=== PATIENT | female | born 1955 | race Hispanic/Latino ===

== ENCOUNTER 2018-04-24 11:27 | Emergency (ER) | payer BC ==
[2018-04-24] MEDS ORDERED: NACL 0.9% 1000 ML 1,000 ML IV ONE (11:47)
[2018-04-24] MEDS ORDERED: SUBLIMAZE IV ONE (11:47)
[2018-04-24] MEDS ORDERED: ZOFRAN IV ONE (12:03)
[2018-04-24] MEDS ORDERED: KETALAR IV ONE (12:03)
[2018-04-24] MEDS ORDERED: DIPRIVAN 10 MG/ML IV ONE ×2 (12:03→12:51)
--- NOTE | 2018-04-24 12:05 | Emergency Department Report ---
ED General Adult HPI - General Chief complaint: Fall Stated complaint: RT WRIST BROKEN Time Seen by Provider: 04/24/18 11:52 Source: patient, RN notes reviewed, old records reviewed Mode of arrival: Wheelchair Limitations: Physical Limitation - History of Present Illness Initial comments: This is a pleasant 62-year-old female who was not known to this provider previously. Patient has a past history of DJD, fibromyalgia, essential tremors. The patient is up-to-date with tetanus vaccination and is right-hand dominant. She reports she is following up with her outpatient orthopedic surgeon next month, for her chronic right-sided knee pain, and is supposed to have a knee replacement done within the next few weeks. Orthopedic physician: [facility] The patient reports being in her usual state of health when she was walking, and reports that her right knee gave out on her, and she landed on her right cheek and right wrist. She has a mild headache, there is no midline neck pain, there is no extremity weakness or numbness, there is no chest pain or abdominal pain, there is mild right-sided knee pain which is not new, worsening or different, and her primary complaints is a deformed swollen tender right wrist. This has been present since the fall, for slightly less than an hour, pain is sharp, increases with palpation, decreases with rest, and does not radiate anywhere. -: Sudden Location: right, upper extremity Radiation: non-radiation Severity scale (0 -10): 10 Quality: aching Consistency: constant Improves with: rest Worsens with: movement - Related Data Previous Rx's Medication Instructions Recorded Last Taken Type Acetaminophen/Codeine [Tylenol #3] 1 tab PO Q6H PRN #15 tab 05/10/15 Unknown Rx Acetaminophen [Tylenol Arthritis] 650 mg PO Q6HR PRN #30 tablet.er 04/24/18 Unknown Rx Ibuprofen [Motrin] 600 mg PO Q8H PRN #30 tablet 04/24/18 Unknown Rx oxyCODONE [Roxicodone] 5 mg PO Q6HR PRN #15 tablet 04/24/18 Unknown Rx Allergies Allergy/AdvReac Type Severity Reaction Status Date / Time Penicillins AdvReac Swelling Verified 05/10/15 08:55 ED Review of Systems ROS: Stated complaint: RT WRIST BROKEN Other details as noted in HPI Constitutional: denies: fever, malaise Eyes: denies: vision change ENT: denies: epistaxis Respiratory: denies: cough Cardiovascular: denies: chest pain Gastrointestinal: denies: abdominal pain Genitourinary: denies: dysuria Musculoskeletal: arthralgia, myalgia Skin: denies: lesions Neurological: denies: weakness, numbness, paresthesias, confusion Psychiatric: anxiety ED Past Medical Hx - Past Medical History Previous Medical History?: Yes Hx Psychiatric Treatment: Yes Additional medical history: fibromyalgia, OA - Surgical History Additional Surgical History: knee surgery, hysterectomy, bone tumor - Social History Smoking Status: Never Smoker Substance Use Type: None - Medications Home Medications: Home Medications Medication Instructions Recorded Confirmed Last Taken Type Acetaminophen/Codeine [Tylenol #3] 1 tab PO Q6H PRN #15 tab 05/10/15 Unknown Rx Acetaminophen [Tylenol Arthritis] 650 mg PO Q6HR PRN #30 tablet.er 04/24/18 Unknown Rx Ibuprofen [Motrin] 600 mg PO Q8H PRN #30 tablet 04/24/18 Unknown Rx oxyCODONE [Roxicodone] 5 mg PO Q6HR PRN #15 tablet 04/24/18 Unknown Rx ED Physical Exam - General Limitations: Physical Limitation, Other (essential tremor is reviewed and appreciated) General appearance: alert, in no apparent distress - Head Head exam: Present: normocephalic, other (there is a right cheek facial abrasion noted) - Eye Eye exam: Present: normal appearance, PERRL, EOMI. Absent: nystagmus - ENT ENT exam: Present: normal exam, normal orophraynx, mucous membranes moist, normal external ear exam, other (is no jaw tenderness. There is no facial bone tenderness.) - Neck Neck exam: Present: normal inspection, full ROM. Absent: tenderness, meningismus - Respiratory Respiratory exam: Present: normal lung sounds bilaterally. Absent: respiratory distress, wheezes, rales, rhonchi, stridor, chest wall tenderness - Cardiovascular Cardiovascular Exam: Present: regular rate, normal rhythm, normal heart sounds. Absent: bradycardia, tachycardia, irregular rhythm, systolic murmur, diastolic murmur, rubs, gallop - GI/Abdominal GI/Abdominal exam: Present: soft. Absent: distended, tenderness, guarding, rebound, rigid, pulsatile mass - Extremities Exam Extremities exam: Present: tenderness (there is right wrist tenderness), pedal edema, joint swelling (there is right wrist swelling), other (2+ pulses noted in the left upper extremity. 2+ pulses noted in 4 extremities. Compartments soft. No long bony tenderness in the left arm, left leg, right leg. The pelvis is stable. There is no significant instability or laxity to the bilateral knees.). Absent: full ROM, calf tenderness - Back Exam Back exam: Present: normal inspection, full ROM. Absent: tenderness, CVA tenderness (R), paraspinal tenderness, vertebral tenderness - Neurological Exam Neurological exam: Present: alert (patient has essential tremor), other (Extraocular movements intact. Tongue midline. No facial droop. Facial sensation intact to light touch in the V1, V2, V3 distribution bilaterally. 5 and 5 strength in 4 extremities.. Sensation is intact to light touch in 4 extremities.). Absent: motor sensory deficit - Psychiatric Psychiatric exam: Present: anxious - Skin Skin exam: Present: warm, abrasion, ecchymosis ED Course Vital Signs 04/24/18 04/24/18 04/24/18 11:31 12:06 12:50 Temperature 97.6 F Pulse Rate 87 Pulse Rate [ Intra-Procedure ] Pulse Rate [ Post-Procedure] Pulse Rate [Pre 64 -Procedure] Respiratory 18 20 Rate Respiratory Rate [Intra- Procedure] Respiratory Rate [Post- Procedure] Respiratory 11 L Rate [Pre- Procedure] Blood Pressure 83/53 Blood Pressure [Intra- Procedure] Blood Pressure [Post-Procedure ] Blood Pressure 155/68 [Pre-Procedure] O2 Sat by Pulse 98 Oximetry O2 Sat by Pulse Oximetry [ Intra-Procedure ] O2 Sat by Pulse Oximetry [Post -Procedure] O2 Sat by Pulse 99 Oximetry [Pre- Procedure] 04/24/18 04/24/18 04/24/18 12:55 13:00 13:05 Temperature Pulse Rate Pulse Rate [ 64 68 Intra-Procedure ] Pulse Rate [ 73 Post-Procedure] Pulse Rate [Pre -Procedure] Respiratory Rate Respiratory 8 L 7 L Rate [Intra- Procedure] Respiratory 8 L Rate [Post- Procedure] Respiratory Rate [Pre- Procedure] Blood Pressure Blood Pressure 177/76 161/72 [Intra- Procedure] Blood Pressure 173/80 [Post-Procedure ] Blood Pressure [Pre-Procedure] O2 Sat by Pulse Oximetry O2 Sat by Pulse 100 100 Oximetry [ Intra-Procedure ] O2 Sat by Pulse 99 Oximetry [Post -Procedure] O2 Sat by Pulse Oximetry [Pre- Procedure] 04/24/18 04/24/18 04/24/18 13:20 13:35 13:50 Temperature Pulse Rate Pulse Rate [ Intra-Procedure ] Pulse Rate [ 66 63 63 Post-Procedure] Pulse Rate [Pre -Procedure] Respiratory Rate Respiratory Rate [Intra- Procedure] Respiratory 8 L 8 L 11 L Rate [Post- Procedure] Respiratory Rate [Pre- Procedure] Blood Pressure Blood Pressure [Intra- Procedure] Blood Pressure 150/60 139/66 141/59 [Post-Procedure ] Blood Pressure [Pre-Procedure] O2 Sat by Pulse Oximetry O2 Sat by Pulse Oximetry [ Intra-Procedure ] O2 Sat by Pulse 99 99 99 Oximetry [Post -Procedure] O2 Sat by Pulse Oximetry [Pre- Procedure] - Reevaluation(s) Reevaluation #1: 04/24/18 14:55 Differential diagnosis Including but not limited to: Intracranial injury, right wrist fracture Assessment and plan: 62-year-old female status post mechanical trip and fall, medically/clinically sober at this time, [place] Coma Scale of 15, with right facial abrasion, no midline cervical spine pain or tenderness, normal neurologic examination, unremarkable primary, secondary survey, with the exception of the right wrist abrasions, then obviously displaced right distal radius fracture. Pulses intact, has good capillary refill, and thumb opposition, finger intrinsic range of motion appears to be grossly intact to the right upper and left upper extremities. Patient has given informed verbal and written consent for moderate sedation and closed reduction of the right distal radius fracture. She was given 100 mg of ketamine in total, 25 mg of propofol, and through direct manipulation, head near anatomic realignment of her right distal radius fracture. She had a sugar tong splint applied, and had good postprocedural neurovascular integrity demonstrated. She is up-to-date with a tetanus vaccination, and x-rays were transmitted with the patient's permission to our orthopedic surgeon on-call, Dr. Domínguez, who agreed with this plan of care for discharge with outpatient follow-up. Her screening laboratory studies were unremarkable, has not had any episodes of hypotension while in the emergency room, aside from her initial triage, and a noncontrast CT scan of the brain is negative for acute disease. Patient is observed in the emergency room for greater than 3 hours without clinical decompensation, and she is medically suitable for discharge at this point in time 04/24/18 14:56 Reevaluation #2: 04/24/18 15:01 Found to have superficial abrasions on the wrist, cleaned with water, aseptic dressing applied, patient tolerated well. - Moderate Sedation Indications: fracture/dislocation redu ASA Class: II Mallampati Airway Score: 1 Preparation: secured entrance monitor applied, pulse oximeter, capnometry used, supplemental O2 applied, suction/airway equipment at bedside, IV secured Ketamine: IV Ketamine Dose: 25 IV Propofol Dose (mgs): 100 Complications: none Patient Tolerated Procedure: well - Orthopedic Fracture Reduction Fracture #1 Consent Obtained: verbal consent, written consent, emergent situation Time Out Performed: Yes Side: right Fracture Reduction Location: radius Analgesia: moderate sedation Technique: direct manipulation Post Reduction X-rays Demonstrate: acceptable reduction Post-Reduction Neuro Exam: intact Post-Reduction Vascular Exam: intact Splint Applied: Yes Patient Tolerated Procedure: well - Orthopedic Splinting/Casting Injury #1 Side: right Upper Extremity Injury Location: wrist Upper Extremity Immobilizer: sugartong splint ED Medical Decision Making - Lab Data Result diagrams: 04/24/18 12:10 04/24/18 12:10 Vital Signs 04/24/18 04/24/18 04/24/18 11:31 12:06 12:50 Temperature 97.6 F Pulse Rate 87 Pulse Rate [ Intra-Procedure ] Pulse Rate [ Post-Procedure] Pulse Rate [Pre 64 -Procedure] Respiratory 18 20 Rate Respiratory Rate [Intra- Procedure] Respiratory Rate [Post- Procedure] Respiratory 11 L Rate [Pre- Procedure] Blood Pressure 83/53 Blood Pressure [Intra- Procedure] Blood Pressure [Post-Procedure ] Blood Pressure 155/68 [Pre-Procedure] O2 Sat by Pulse 98 Oximetry O2 Sat by Pulse Oximetry [ Intra-Procedure ] O2 Sat by Pulse Oximetry [Post -Procedure] O2 Sat by Pulse 99 Oximetry [Pre- Procedure] 04/24/18 04/24/18 04/24/18 12:55 13:00 13:05 Temperature Pulse Rate Pulse Rate [ 64 68 Intra-Procedure ] Pulse Rate [ 73 Post-Procedure] Pulse Rate [Pre -Procedure] Respiratory Rate Respiratory 8 L 7 L Rate [Intra- Procedure] Respiratory 8 L Rate [Post- Procedure] Respiratory Rate [Pre- Procedure] Blood Pressure Blood Pressure 177/76 161/72 [Intra- Procedure] Blood Pressure 173/80 [Post-Procedure ] Blood Pressure [Pre-Procedure] O2 Sat by Pulse Oximetry O2 Sat by Pulse 100 100 Oximetry [ Intra-Procedure ] O2 Sat by Pulse 99 Oximetry [Post -Procedure] O2 Sat by Pulse Oximetry [Pre- Procedure] 04/24/18 04/24/18 04/24/18 13:20 13:35 13:50 Temperature Pulse Rate Pulse Rate [ Intra-Procedure ] Pulse Rate [ 66 63 63 Post-Procedure] Pulse Rate [Pre -Procedure] Respiratory Rate Respiratory Rate [Intra- Procedure] Respiratory 8 L 8 L 11 L Rate [Post- Procedure] Respiratory Rate [Pre- Procedure] Blood Pressure Blood Pressure [Intra- Procedure] Blood Pressure 150/60 139/66 141/59 [Post-Procedure ] Blood Pressure [Pre-Procedure] O2 Sat by Pulse Oximetry O2 Sat by Pulse Oximetry [ Intra-Procedure ] O2 Sat by Pulse 99 99 99 Oximetry [Post -Procedure] O2 Sat by Pulse Oximetry [Pre- Procedure] Lab Results 04/24/18 04/24/18 04/24/18 Range/Units 12:10 12:10 12:10 WBC 13.1 H (4.5-11.0) K/mm3 RBC 3.87 (3.65-5.03) M/mm3 Hgb 11.8 (10.1-14.3) gm/dl Hct 34.2 (30.3-42.9) % MCV 88 (79-97) fl MCH 31 (28-32) pg MCHC 35 H (30-34) % RDW 16.1 H (13.2-15.2) % Plt Count 328 (140-440) K/mm3 Lymph % (Auto) 5.9 L (13.4-35.0) % Benson % (Auto) 5.3 (0.0-7.3) % Eos % (Auto) 0.7 (0.0-4.3) % Baso % (Auto) 0.2 (0.0-1.8) % Lymph # 0.8 L (1.2-5.4) K/mm3 Benson # 0.7 (0.0-0.8) K/mm3 Eos # 0.1 (0.0-0.4) K/mm3 Baso # 0.0 (0.0-0.1) K/mm3 Seg Neutrophils % 87.9 H (40.0-70.0) % Seg Neutrophils # 11.6 H (1.8-7.7) K/mm3 PT 12.8 (12.2-14.9) Sec. INR 0.91 (0.87-1.13) Sodium 134 L (137-145) mmol/L Potassium 4.0 (3.6-5.0) mmol/L Chloride 95.8 L (98-107) mmol/L Carbon Dioxide 26 (22-30) mmol/L Anion Gap 16 mmol/L BUN 22 H (7-17) mg/dL Creatinine 0.8 (0.7-1.2) mg/dL Estimated GFR > 60 ml/min BUN/Creatinine Ratio 28 % Glucose 152 H (65-100) mg/dL Calcium 8.9 (8.4-10.2) mg/dL Magnesium (1.7-2.3) mg/dL Total Bilirubin 0.30 (0.1-1.2) mg/dL AST 24 (5-40) units/L ALT 16 (7-56) units/L Alkaline Phosphatase 52 (35-129) units/L Total Creatine Kinase (30-135) units/L Total Protein 5.8 L (6.3-8.2) g/dL Albumin 3.8 L (3.9-5) g/dL Albumin/Globulin Ratio 1.9 % TSH (0.270-4.200) mlU/mL Blood Type Antibody Screen 04/24/18 04/24/18 04/24/18 Range/Units 12:10 12:10 12:10 WBC (4.5-11.0) K/mm3 RBC (3.65-5.03) M/mm3 Hgb (10.1-14.3) gm/dl Hct (30.3-42.9) % MCV (79-97) fl MCH (28-32) pg MCHC (30-34) % RDW (13.2-15.2) % Plt Count (140-440) K/mm3 Lymph % (Auto) (13.4-35.0) % Benson % (Auto) (0.0-7.3) % Eos % (Auto) (0.0-4.3) % Baso % (Auto) (0.0-1.8) % Lymph # (1.2-5.4) K/mm3 Benson # (0.0-0.8) K/mm3 Eos # (0.0-0.4) K/mm3 Baso # (0.0-0.1) K/mm3 Seg Neutrophils % (40.0-70.0) % Seg Neutrophils # (1.8-7.7) K/mm3 PT (12.2-14.9) Sec. INR (0.87-1.13) Sodium (137-145) mmol/L Potassium (3.6-5.0) mmol/L Chloride (98-107) mmol/L Carbon Dioxide (22-30) mmol/L Anion Gap mmol/L BUN (7-17) mg/dL Creatinine (0.7-1.2) mg/dL Estimated GFR ml/min BUN/Creatinine Ratio % Glucose (65-100) mg/dL Calcium (8.4-10.2) mg/dL Magnesium 1.80 (1.7-2.3) mg/dL Total Bilirubin (0.1-1.2) mg/dL AST (5-40) units/L ALT (7-56) units/L Alkaline Phosphatase (35-129) units/L Total Creatine Kinase 52 (30-135) units/L Total Protein (6.3-8.2) g/dL Albumin (3.9-5) g/dL Albumin/Globulin Ratio % TSH 3.370 (0.270-4.200) mlU/mL Blood Type A POSITIVE Antibody Screen Negative - EKG Data -: EKG Interpreted by Fl - EKG Data 04/24/18 14:55 EKG limited by motion artifact. Rate bradycardia, 57 beats a minute. Appears to be sinus rhythm. Borderline rightward axis deviation. EKG limited by motion artifact, secondary to patient's underlying essential tremor - Radiology Data Radiology results: report reviewed, image reviewed Noncontrast CT scan of the brain is negative for acute disease. X-ray #1 shows displaced right distal radius fracture. Postreduction x-ray demonstrates near anatomic reduction. Critical care attestation.: If time is entered above; I have spent that time in minutes in the direct care of this critically ill patient, excluding procedure time. ED Disposition Clinical Impression: Fall Fracture of right distal radius Qualifiers: Encounter type: initial encounter Fracture type: closed Fracture morphology: other fracture Qualified Code(s): S52.591A - Other fractures of lower end of right radius, initial encounter for closed fracture Facial abrasion Qualifiers: Encounter type: initial encounter Qualified Code(s): S00.81XA - Abrasion of other part of head, initial encounter Disposition: TO HOME OR SELFCARE Is pt being admited?: No Does the pt Need Aspirin: No Condition: Stable Instructions: Wrist Fracture in Adults (ED) Additional Instructions: Rest, avoid heavy lifting, and avoid strenuous physical activities. Follow up with an orthopedic surgeon within the next 5-7 days. Take the pain medication as needed/directed. Return to the emergency room right away with new pain, w orsened pain, migration of pain, projectile vomiting, change in mental status, confusion, new, worsening or different symptoms. Referrals: REBECCA DOMÍNGUEZ MD [Staff Physician] - 3-5 Days [facility] [Provider Group] - 3-5 Days
--- NOTE | 2018-04-24 12:34 | Cat Scan Report ---
CT HEAD WITHOUT CONTRAST: HISTORY: Fall, head trauma. TECHNIQUE: Sequential 2.5mm CT images. COMPARISON: none. FINDINGS: Cerebral Parenchyma: Within normal limits. Cerebellum: Within normal limits. Brainstem: Within normal limits. Ventricles: Normal. Sella: Normal. Extra-axial spaces: Normal. Basal Cisterns: Normal. Intracranial Hemorrhage: None. Midline Shift: None. Calvarium: Normal. Sinuses: Normal. Mastoid Air Cells: Normal. Visualized Orbits: Normal. IMPRESSION: Cranial CT scan within normal limits.
[2018-04-24 12:35] LABS: Basophils % (Auto) 0.2 % (0.0-1.8); Eosinophils # (Auto) 0.1 K/mm3 (0.0-0.4); Eosinophils % (Auto) 0.7 % (0.0-4.3); Hematocrit 34.2 % (30.3-42.9); Hemoglobin 11.8 gm/dl (10.1-14.3); Lymphocytes # (Auto) 0.8 K/mm3 (1.2-5.4); Lymphocytes % (Auto) 5.9 % (13.4-35.0); Mean Corpuscular HGB Conc 35 % (30-34); Mean Corpuscular Volume 88 fl (79-97); Monocytes # (Auto) 0.7 K/mm3 (0.0-0.8); Monocytes % (Auto) 5.3 % (0.0-7.3); Platelet Count 328 K/mm3 (140-440); Red Blood Count 3.87 M/mm3 (3.65-5.03); Red Cell Distribution Width 16.1 % (13.2-15.2)
--- NOTE | 2018-04-24 12:36 | XRay Report ---
RIGHT WRIST, 2 VIEWS History: Pain after injury, deformity. Findings: Nonstandard views are presented. A mildly comminuted and displaced fracture is identified through the distal radial metaphysis. Posterior displacement at the fracture site is estimated at 2 cm. The distal ulna and carpal bones are grossly intact. There is diffuse soft tissue swelling. Impression: Displaced, slightly comminuted distal right radial fracture.
[2018-04-24 12:45] LABS: INR 0.91 (0.87-1.13)
[2018-04-24 13:00] LABS: Alanine Aminotransferase 16 units/L (7-56); Albumin 3.8 g/dL (3.9-5); BUN/Creatinine Ratio 28; Blood Urea Nitrogen 22 mg/dL (7-17); Calcium 8.9 mg/dL (8.4-10.2); Hemolysis Index 5
[2018-04-24] MEDS ORDERED: SODIUM CHLORIDE FLUSH SYRINGE 10 ML IV NR (13:00)
[2018-04-24] MEDS ORDERED: KETAMINE HCL IV ONE (13:00)
--- NOTE | 2018-04-24 13:56 | XRay Report ---
RIGHT WRIST, 2 VIEWS History: Postreduction film. Findings: The complex fracture involving the distal right radius has been significantly reduced since earlier today at 1200 hrs. Minimal posterior displacement of the distal radius persists. The remainder of the examination is unchanged. A splint has been applied. Impression: Near-anatomic alignment of distal radial fracture site.
[2018-04-24] MEDS ORDERED: TORADOL IV ONE (14:01)
[2018-04-24] MEDS ORDERED: REGLAN IV ONE (14:16)
[2018-04-24 16:31] VITALS: BP 140/66
== END 2018-04-24 16:45 | disposition home or self-care (01) ==
LOC: ED 11:27
DX: S52.591A Other fractures of lower end of right radius, initial encounter for closed fracture (principal); S00.81XA Abrasion of other part of head, initial encounter; M19.90 Unspecified osteoarthritis, unspecified site; Z88.0 Allergy status to penicillin; W18.30XA Fall on same level, unspecified, initial encounter; Y93.9 Activity, unspecified; Y92.89 Other specified places as the place of occurrence of the external cause; Y99.8 Other external cause status
CPT/HCPCS: 25605; 36415; 70450; 73100; 80053; 82550; 83735; 84443; 85025; 85610; 86850; 86900; 86901; 93005; 93010; 96374; 96375; 99285; J1885; J2405; J2704; J2765; J3010; J7030